=== PATIENT | male | born 1940 | race Caucasian/White ===

== ENCOUNTER → 2021-02-27 | Outpatient (CLI) | payer MEDICARE, OTHER | LOC: HEART 5 08:40 | DX: R06.02 Shortness of breath (principal) | CPT/HCPCS: 94010 ==

== ENCOUNTER → 2021-03-02 | Outpatient (CLI) | payer MEDICARE, OTHER | LOC: HEART 5 14:39 | DX: R00.2 Palpitations (principal) ==